=== PATIENT | male | born 2000 | race Hispanic/Latino ===

== ENCOUNTER 2019-01-09 09:07 | Emergency (ER) | payer OTHER, SELFPAY ==
[2019-01-09] MEDS ORDERED: Lidocaine 1% (PF) 30 ML VIAL ONE (09:43)
== END 2019-01-09 10:36 | disposition home or self-care (01) ==
LOC: ERS 09:07
DX: S01.112A Laceration without foreign body of left eyelid and periocular area, initial encounter (principal); W01.198A Fall on same level from slipping, tripping and stumbling with subsequent striking against other object, initial encounter
CPT/HCPCS: 12011; J2001